=== PATIENT | male | born 1995 | race Two or more races ===

== ENCOUNTER 2017-12-27 21:40 | Emergency (ER) | payer OTHER ==
[~2017-12-27] VITALS: Ht 172.7 cm; Wt 70.3 kg
[2017-12-27 22:07] LABS: BASO % 0 % (0-3); EOS # 0.1 x10^3/uL (0.0-0.7); EOS % 2 % (0-3); HEMATOCRIT 37.6 % (39.0-53.0); HEMOGLOBIN 13.4 g/dL (13.0-17.5); LYMPH # 2.8 x10^3/uL (1.0-4.8); LYMPH % 42 % (24-48); MEAN CORPUSCULAR HEMOGLOBIN 29 pg (25-35); MEAN CORPUSCULAR HGB CONC 36 g/dL (31-37); MEAN CORPUSCULAR VOLUME 83 fL (79-100); MONO # 0.8 x10^3/uL (0.0-1.1); MONO % 13 % (0-9); NEUT # 2.9 x10^3uL (1.8-7.7); NEUT % 43 % (31-73); PLATELET COUNT 327 x10^3/uL (140-400); RED BLOOD COUNT 4.55 x10^6/uL (4.30-5.70); RED CELL DISTRIBUTION WIDTH 13.4 % (11.5-14.5); WHITE BLOOD COUNT 6.6 x10^3/uL (4.0-11.0)
--- NOTE | 2017-12-27 22:14 | PHYS DOC ---
Past Medical History Past Medical History: Hypothyroid, Migraines Past Surgical History: No Surgical History Alcohol Use: None Drug Use: Marijuana Adult General Chief Complaint Chief Complaint: RAPID HEART RATE HPI HPI Patient is a 22 year old male who presents with a racing heart since 06/05/14 tonight. Patient states he has been smoking marijuana today. Patient rates his pain a 9 out of 10 and states is more throbbing. Patient states that the pain has calmed down. Review of Systems Review of Systems Constitutional: Denies fever or chills [] Eyes: Denies change in visual acuity, redness, or eye pain [] HENT: Denies nasal congestion or sore throat [] Respiratory: Denies cough or shortness of breath [] Cardiovascular: Racing heart and chest pain GI: Denies abdominal pain, nausea, vomiting, bloody stools or diarrhea [] : Denies dysuria or hematuria [] Musculoskeletal: Denies back pain or joint pain [] Integument: Denies rash or skin lesions [] Neurologic: Denies headache, focal weakness or left arm tingling sensory changes [] Endocrine: Denies polyuria or polydipsia [] All other systems were reviewed and found to be within normal limits, except as documented in this note. Current Medications Current Medications Current Medications Medications (Trade) Dose Ordered Sig/Emma Start Time Stop Time Status Last Admin Dose Admin Lorazepam (Ativan) 1 mg 1X ONCE 12/28/17 00:00 12/28/17 00:01 DC 12/27/17 23:58 1 MG Sodium Chloride 1,000 ml @ 1,000 mls/hr 1X ONCE 12/28/17 00:00 12/28/17 00:42 DC 12/27/17 23:58 1,000 MLS/HR Allergies Allergies Allergies Coded Allergies Type Severity Reaction Last Updated Verified No Known Drug Allergies 12/27/17 No Physical Exam Physical Exam Constitutional: Well developed, well nourished, no acute distress, non-toxic appearance. [] HENT: Normocephalic, atraumatic, bilateral external ears normal, oropharynx moist, no oral exudates, nose normal. [] Eyes: PERRLA, EOMI, conjunctiva normal, no discharge. [] Neck: Normal range of motion, no tenderness, supple, no stridor. [] Cardiovascular:Tachy Heart rate rhythm, no murmur [] Lungs & Thorax: Bilateral breath sounds clear to auscultation [] Abdomen: Bowel sounds normal, soft, no tenderness, no masses, no pulsatile masses. [] Skin: Warm, dry, no erythema, no rash. [] Back: No tenderness, no CVA tenderness. [] Extremities: No tenderness, no cyanosis, no clubbing, ROM intact, no edema. [] Neurologic: Alert and oriented X 3, normal motor function, normal sensory function, no focal deficits noted. [] Psychologic: Affect normal, judgement normal, mood normal. [] Current Patient Data Vital Signs Vital Signs Date Time Temp Pulse Resp B/P (MAP) Pulse Ox O2 Delivery O2 Flow Rate FiO2 12/28/17 00:33 110 20 131/70 (90) 98 Room Air 12/27/17 21:40 98.4 98.4 Lab Values Laboratory Tests Test 12/27/17 21:51 12/27/17 23:20 White Blood Count 6.6 x10^3/uL (4.0-11.0) Red Blood Count 4.55 x10^6/uL (4.30-5.70) Hemoglobin 13.4 g/dL (13.0-17.5) Hematocrit 37.6 % (39.0-53.0) L Mean Corpuscular Volume 83 fL (79-100) Mean Corpuscular Hemoglobin 29 pg (25-35) Mean Corpuscular Hemoglobin Concent 36 g/dL (31-37) Red Cell Distribution Width 13.4 % (11.5-14.5) Platelet Count 327 x10^3/uL (140-400) Neutrophils (%) (Auto) 43 % (31-73) Lymphocytes (%) (Auto) 42 % (24-48) Monocytes (%) (Auto) 13 % (0-9) H Eosinophils (%) (Auto) 2 % (0-3) Basophils (%) (Auto) 0 % (0-3) Neutrophils # (Auto) 2.9 x10^3uL (1.8-7.7) Lymphocytes # (Auto) 2.8 x10^3/uL (1.0-4.8) Monocytes # (Auto) 0.8 x10^3/uL (0.0-1.1) Eosinophils # (Auto) 0.1 x10^3/uL (0.0-0.7) Basophils # (Auto) 0.0 x10^3/uL (0.0-0.2) Sodium Level 140 mmol/L (136-145) Potassium Level 3.6 mmol/L (3.5-5.1) Chloride Level 104 mmol/L (98-107) Carbon Dioxide Level 30 mmol/L (21-32) Anion Gap 6 (6-14) Blood Urea Nitrogen 18 mg/dL (8-26) Creatinine 0.7 mg/dL (0.7-1.3) Estimated GFR (Cockcroft-Gault) 138.6 Glucose Level 144 mg/dL (70-99) H Calcium Level 9.0 mg/dL (8.5-10.1) Troponin I Quantitative < 0.017 ng/mL (0.000-0.055) Thyroid Stimulating Hormone (TSH) 0.010 uIU/mL (0.358-3.74) L Urine Opiates Screen Neg (NEG) Urine Methadone Screen Neg (NEG) Urine Barbiturates Neg (NEG) Urine Phencyclidine Screen Neg (NEG) Urine Amphetamine/Methamphetamine Neg (NEG) Urine Benzodiazepines Screen Neg (NEG) Urine Cocaine Screen Neg (NEG) Urine Cannabinoids Screen Pos (NEG) Urine Ethyl Alcohol Neg (NEG) Laboratory Tests 12/27/17 21:51 Laboratory Tests 12/27/17 21:51 EKG EKG Sinus Tachy, No STEMI Interpretation Time: [address] Mejia Radiology/Procedures Radiology/Procedures Chest x ray Impressions: No acute findings and read by Dr Mejia Course & Med Decision Making Course & Med Decision Making Patient is a 22 year old male who presents with a racing heart since 2114. Patient states he has been smoking marijuana today. Patient rates his pain a 9 out of 10 and states is more throbbing. Patient states that the pain has calmed down. Upon examination Patients heart rate was 140 but lungs are clear to auscultation. Patients conjunctiva are red bilaterally. Patient speaks in full sentences. Skin is pink, warm, and dry. Patient is afebrile. Chest pain is not reproducible. Patient is alert and oriented. Patient has no sensory changes or weaknesses. Patient has no extremity edema. Patient states he has a history of hyperthyroidism and was taking a medication that he can not remember the name of. Patient states he took the medication for 3-4 weeks and then stopped for 3-4 weeks and has been taking it for the last 5 days again. Patients EKG shows Sinus tachycardia without STEMI. Patient states his heart rate usually runs 102-105. Chest x ray has no acute findings. TSH level is low and patient needs to take his medications as prescribed and should follow up with his primary care physician as soon as possible. Patient is given Ativan in the ED and a NS Bolus. Patient to be discharged home in stable condition with a heart rate of 111. Dr Mejia has examined this patient and is agreeable tot he discharge. Staff Physician Addendum: I was working in the ER during the course of this patient's visit. I was available for consultation as needed, I did briefly evaluate this patient. His tachycardia did improve significantly after IV fluids and Ativan he says that he has been noncompliant with his hyperthyroidism medication but he has it now at home and he plans to take it daily Advised follow-up with the doctor who is prescribing that medication marijuana cessation reassurance provided [] Dragon Disclaimer Dragon Disclaimer This electronic medical record was generated, in whole or in part, using a voice recognition dictation system. Departure Departure Impression: Primary Impression: Rapid heart rate Disposition: HOME, SELF-CARE Condition: STABLE Referrals: NO PCP (PCP) Patient Instructions: Hyperthyroidism, Nonspecific Tachycardia Additional Instructions: Follow up with your primary care physician. Take your medication as prescribed. VALENTINA SHAH APRN Dec 27, 2017 22:14 SABA MEJIA MD Dec 28, 2017 03:08
[2017-12-27 22:21] LABS: CREATININE 0.7 mg/dL (0.7-1.3); GFR 138.6; POTASSIUM 3.6 mmol/L (3.5-5.1)
[2017-12-27 23:34] LABS: BARBITURATES NEG (NEG); BENZODIAZEPINES NEG (NEG); CANNABINOIDS POS (NEG); COCAINE NEG (NEG); METHADONE NEG (NEG); OPIATES NEG (NEG); PHENCYCLIDINE NEG (NEG)
[2017-12-27 23:35] LABS: AMPHETAMINE/METHAMPHETAMINE NEG (NEG)
[2017-12-27] MEDS: IV NORMAL SALINE 1000ML BAG 1,000 ML IV ONE (23:58)
[2017-12-28 00:33] VITALS: BP 131/70
--- NOTE | 2017-12-28 07:21 | EKG ---
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
--- NOTE | 2017-12-28 08:18 | RAD ---
Chest radiograph 12/27/2017 9:58 PM INDICATION: Left-sided chest pain radiating to the left arm COMPARISON: None available TECHNIQUE: Frontal and lateral views of the chest are provided. FINDINGS: The cardiomediastinal silhouette is within normal limits. There are no pleural effusions. There is no pulmonary vascular congestion. There is no pneumothorax. The lungs are clear. No significant osseous abnormality is identified. IMPRESSION: No acute cardiopulmonary process. Electronically signed by: Cailin Becerra MD (12/28/2017 8:14 AM) [id number]
== END 2017-12-28 00:42 | disposition home or self-care (01) ==
LOC: ER 21:40
DX: R00.0 Tachycardia, unspecified (principal); E03.9 Hypothyroidism, unspecified; G43.909 Migraine, unspecified, not intractable, without status migrainosus; F12.10 Cannabis abuse, uncomplicated
CPT/HCPCS: 36415; 71046; 80048; 80307; 84443; 84484; 85025; 93005; 96374; 99285; J2060; J7030; G0479